=== PATIENT | female | born 1985 | race Caucasian/White ===

== ENCOUNTER → 2016-09-13 | Outpatient (CLI) | payer OTHER | LOC: HEART CORB 13:30 | DX: I31.1 Chronic constrictive pericarditis (principal); I34.1 Nonrheumatic mitral (valve) prolapse; Z88.2 Allergy status to sulfonamides | CPT/HCPCS: 93306 ==

== ENCOUNTER 2016-10-26 15:13 | Emergency (ER) | payer OTHER ==
[2016-10-26 16:23] LABS: HEMOGLOBIN 13.7 gm/dl (12.3-15.3); RED BLOOD COUNT 4.55 M/UL (4.00-5.10); WHITE BLOOD COUNT 11.2 K/UL (4.5-11.0)
[2016-10-26 16:42] LABS: BUN/CREATININE RATIO 23 (0-10)
== END 2016-10-26 19:40 | disposition home or self-care (01) ==
LOC: ER1 15:13
PROVIDERS: Family Medicine
DX: K76.0 Fatty (change of) liver, not elsewhere classified (principal); M54.6 Pain in thoracic spine; Z90.49 Acquired absence of other specified parts of digestive tract; Z88.2 Allergy status to sulfonamides
CPT/HCPCS: 36415; 71020; 80053; 81001; 83690; 84703; 85025; 87086; 96374; 96375; 99284; C9113; J2405

== ENCOUNTER 2020-09-15 13:20 | Outpatient (CLI) | payer OTHER ==
[~2020-09-15 13:20] MED LIST: ZOFRAN ODT 4 MG4 MG PO
[2020-09-15 13:53] LABS: HEMOGLOBIN 12.4 gm/dl (12.3-15.3); RED BLOOD COUNT 4.24 M/UL (4.00-5.10); WHITE BLOOD COUNT 10.4 K/UL (4.5-11.0)
[2020-09-16] MEDS ORDERED: PRILOSEC OTC20 MG PO (10:18)
[2020-09-16] MEDS ORDERED: PRENATABS FA T1 EACH PO (10:18)
[2020-09-16] MEDS ORDERED: COLACE 100MG C100 MG PO (11:06)
[2020-09-16] MEDS ORDERED: HYDROCODON-ACE1 EAC4 PO (11:06)
[2020-09-16] MEDS ORDERED: NAPROSYN EC 50500 MG PO (11:06)
== END 2020-09-15 15:04 | disposition home or self-care (01) ==
LOC: GENOP 13:20
PROVIDERS: Obstetrics & Gynecology
DX: Z53.8 Procedure and treatment not carried out for other reasons (principal)
CPT/HCPCS: 36415; 81001; 85025

== ENCOUNTER 2020-09-16 07:30 | Inpatient (IN) | payer OTHER ==
[~2020-09-16] VITALS: Ht 160 cm; Wt 80.3 kg
[2020-09-16] MEDS ORDERED: PRILOSEC OTC20 MG PO (10:18)
[2020-09-16] MEDS ORDERED: PRENATABS FA T1 EACH PO (10:18)
[2020-09-16] MEDS ORDERED: COLACE 100MG C100 MG PO (11:06)
[2020-09-16] MEDS ORDERED: NAPROSYN EC 50500 MG PO (11:06)
[2020-09-16] MEDS ORDERED: HYDROCODON-ACE1 EAC4 PO (11:06)
[2020-09-17] MEDS ORDERED: HYDROCODONE-AC1 EACH PO (14:43)
[2020-09-17] MEDS ORDERED: IBUPROFEN600 MG PO (14:43)
[2020-09-17] MEDS ORDERED: DOCUSATE SODIU250 MG PO (14:43)
== END 2020-09-17 16:57 | disposition home or self-care (01) | DRG 788 ==
LOC: OB 07:39
PROVIDERS: ADMIT Obstetrics & Gynecology
PROC: 4A1HXCZ Monitoring of Products of Conception, Cardiac Rate, External Approach (ICD-10-PCS; 2020-09-16)
PROC: 10D00Z1 Extraction of Products of Conception, Low, Open Approach (ICD-10-PCS; principal; 2020-09-16 09:00)
DX: O34.211 Maternal care for low transverse scar from previous cesarean delivery (principal); Z3A.39 39 weeks gestation of pregnancy; Z37.0 Single live birth; Z98.84 Bariatric surgery status; Z20.822 Contact with and (suspected) exposure to COVID-19; Z88.2 Allergy status to sulfonamides; Z88.5 Allergy status to narcotic agent
CPT/HCPCS: 36415; 81001; 82800; 85014; 85018; 85025; 90715; C9113; J0690; J1200; J1885; J2274; J2300; J2405; J2590; J3010; J7120; U0003

== ENCOUNTER → 2022-01-23 | Outpatient (CLI) | payer OTHER ==
[~2022-01-23] MED LIST changes: +COLACE 100MG C100 MG PO; +DOCUSATE SODIU250 MG PO; +HYDROCODON-ACE1 EAC4 PO; +HYDROCODONE-AC1 EACH PO; +IBUPROFEN600 MG PO; +NAPROSYN EC 50500 MG PO; +PRENATABS FA T1 EACH PO; +PRILOSEC OTC20 MG PO
== END ==
LOC: MRI 01-19 14:00
DX: R10.11 Right upper quadrant pain (principal); R11.0 Nausea; K83.8 Other specified diseases of biliary tract
CPT/HCPCS: 74181